=== PATIENT | female | born 1930 | race Caucasian/White ===

== ENCOUNTER 2016-12-03 02:52 | Inpatient (IN) | payer MEDICARE ==
[~2016-12-03] VITALS: Ht 160 cm; Wt 62.2 kg
[2016-12-03] MEDS ORDERED: SODIUM CHLORIDE FLUSH 10 ML SYR IV PRN (03:30)
[2016-12-03] MEDS ORDERED: SODIUM CHLORIDE FLUSH 3 ML SYR IV PRN (03:30)
[2016-12-03 03:44] LABS: BASOPHILS % (AUTO) 0 % (0-2); EOSINOPHILS % (AUTO) 0 % (0-4); LYMPHOCYTES # (AUTO) 0.9 X10^3; MEAN CORPUSCULAR VOLUME 93 FL (80-100); MEAN PLATELET VOLUME 9.5 FL (6.0-9.5); MONOCYTES # (AUTO) 1.6 X10^3; MONOCYTES % (AUTO) 11 % (3-11); NEUTROPHILS # (AUTO) 12.8 X10^3; NEUTROPHILS % (AUTO) 83 % (51-67); PLATELET COUNT 251 10^3uL (150-450); WHITE BLOOD COUNT 15.36 10^3uL (4.0-11.0)
[2016-12-03 03:57] LABS: MEAN CORPUSCULAR HEMOGLOBIN 31.6 PG (26.0-34.0)
[2016-12-03 04:00] LABS: BILIRUBIN,URINE Negative (Negative); CLARITY,URINE Cloudy; COLOR,URINE Yellow; GLUCOSE, URINE (UA) Negative (Negative); LEUKOCYTE ESTERASE ,URINE 3+ (Negative); PH,URINE 6.5 (5.0 - 8.0); UROBILINOGEN,URINE 0.2 mg/dL (0.2-1.0)
[2016-12-03 04:01] LABS: ALBUMIN 4.2 g/dL (3.4-5.0); ANION GAP 15.8 MEQ/L (3-15); CALCULATED IONIZED CALCIUM 4.2 mg/dL (3.8-4.6); TOTAL PROTEIN 7.6 g/dL (6.4-8.5)
[2016-12-03 04:13] LABS: URINE CENTRIFUGED VOLUME 12 mL
[2016-12-03] MEDS ORDERED: cefTRIAXone SODIUM 1,000 MG in SODIUM CHLORIDE 50 ML IV ONE (04:25)
[2016-12-03 05:58] VITALS: BP 110/62
[2016-12-03] MEDS ORDERED: ONDANSETRON 2 MG/ML (Z0FRAN) 2 ML VIAL IV PRN (06:25)
[2016-12-03] MEDS ORDERED: ACETAMINOPHEN 325 MG TAB (TYLENOL) PO PRN (06:25)
[2016-12-03 06:30] VITALS: BP 110/62
[2016-12-03 07:30] VITALS: BP 110/62
[2016-12-03] MEDS: ENOXAPARIN 40 MG/0.4 ML (LOVENOX) SYR SC SCH (09:00)
[2016-12-03 15:37] VITALS: BP 123/59
[2016-12-03] MEDS: ACIDOPHILUS/LACTOBACILLUS SPOROGENES 1 TABLET PO SCH (17:29)
[2016-12-04] VITALS: BP 116/53
[2016-12-04] MEDS ORDERED: cefTRIAXone SODIUM 1,000 MG in SODIUM CHLORIDE 50 ML IV SCH ×2 (05:00→10:26)
[2016-12-04] MEDS ORDERED: SODIUM CHLORIDE 100 ML ONE (05:08)
[2016-12-04] MEDS ORDERED: cefTRIAXone 1 GM (ROCEPHIN) VIAL ONE (05:08)
[2016-12-04] MEDS ORDERED: SODIUM CHLORIDE 50 ML IV ONE (05:08)
[2016-12-04] MEDS ORDERED: NS 100 ML (IVPB) BAG IV PRN (05:10)
[2016-12-04 06:09] LABS: BASOPHILS % (AUTO) 0 % (0-2); EOSINOPHILS # (AUTO) 0.1 10^3uL; EOSINOPHILS % (AUTO) 1 % (0-4); LYMPHOCYTES # (AUTO) 2.1 X10^3; MEAN CORPUSCULAR HGB CONC 33.7 g/dL (31.0-37.0); MEAN CORPUSCULAR VOLUME 94 FL (80-100); MEAN PLATELET VOLUME 10.2 FL (6.0-9.5); MONOCYTES # (AUTO) 1.2 X10^3; MONOCYTES % (AUTO) 8 % (3-11); NEUTROPHILS # (AUTO) 10.9 X10^3; NEUTROPHILS % (AUTO) 76 % (51-67); PLATELET COUNT 222 10^3uL (150-450); WHITE BLOOD COUNT 14.28 10^3uL (4.0-11.0)
[2016-12-04 06:13] LABS: MEAN CORPUSCULAR HEMOGLOBIN 31.6 PG (26.0-34.0)
[2016-12-04 06:35] LABS: ALBUMIN 3.4 g/dL (3.4-5.0); ANION GAP 12.5 MEQ/L (3-15); PHOSPHORUS 2.7 mg/dL (2.4-4.9)
[2016-12-04 07:27] VITALS: BP 103/51
[2016-12-04] MEDS: ACIDOPHILUS/LACTOBACILLUS SPOROGENES 1 TABLET PO SCH (08:04)
[2016-12-04] MEDS: ASPIRIN 81 MG CHEW (CHILDREN'S ASA) PO SCH (08:04)
[2016-12-04] MEDS: ENOXAPARIN 40 MG/0.4 ML (LOVENOX) SYR SC SCH (08:07)
[2016-12-04 15:24] VITALS: BP 117/51
[2016-12-04] MEDS: NYSTATIN ORAL SUSPENSION 5 ML UDC PO SCH (20:32)
[2016-12-05 00:07] VITALS: BP 121/66
[2016-12-05 06:04] LABS: BASOPHILS % (AUTO) 0 % (0-2); EOSINOPHILS # (AUTO) 0.2 10^3uL; EOSINOPHILS % (AUTO) 2 % (0-4); MEAN CORPUSCULAR HGB CONC 33.6 g/dL (31.0-37.0); MEAN CORPUSCULAR VOLUME 94 FL (80-100); MEAN PLATELET VOLUME 9.9 FL (6.0-9.5); MONOCYTES % (AUTO) 11 % (3-11); NEUTROPHILS # (AUTO) 6.5 X10^3; NEUTROPHILS % (AUTO) 66 % (51-67); PLATELET COUNT 216 10^3uL (150-450); WHITE BLOOD COUNT 9.72 10^3uL (4.0-11.0)
[2016-12-05 06:08] LABS: MEAN CORPUSCULAR HEMOGLOBIN 31.5 PG (26.0-34.0)
[2016-12-05 06:26] LABS: ALBUMIN 3.2 g/dL (3.4-5.0); ANION GAP 11.6 MEQ/L (3-15); PHOSPHORUS 3.1 mg/dL (2.4-4.9)
[2016-12-05 07:59] VITALS: BP 117/54
[2016-12-05] MEDS: ENOXAPARIN 40 MG/0.4 ML (LOVENOX) SYR SC SCH (09:00)
[2016-12-05] MEDS: ACIDOPHILUS/LACTOBACILLUS SPOROGENES 1 TABLET PO SCH (09:02)
[2016-12-05] MEDS: ASPIRIN 81 MG CHEW (CHILDREN'S ASA) PO SCH (09:03)
[2016-12-05] MEDS: NYSTATIN ORAL SUSPENSION 5 ML UDC PO SCH ×2 (09:04→20:08)
[2016-12-05] MEDS ORDERED: cefTRIAXone 1 GM (ROCEPHIN) VIAL IM SCH (15:45)
[2016-12-05 16:00] VITALS: BP 120/60
[2016-12-05] MEDS: CALCIUM CARBONATE CHEWABLE 300 MG (TUMS) TABLET PO PRN (19:45)
[2016-12-06 00:34] VITALS: BP 177/88
[2016-12-06] MEDS ORDERED: cefTRIAXone SODIUM 1,000 MG in SODIUM CHLORIDE 50 ML IV SCH (06:00)
[2016-12-06 08:12] VITALS: BP 124/66
[2016-12-06] MEDS: ENOXAPARIN 40 MG/0.4 ML (LOVENOX) SYR SC SCH (08:58)
[2016-12-06] MEDS: ACIDOPHILUS/LACTOBACILLUS SPOROGENES 1 TABLET PO SCH (09:07)
[2016-12-06] MEDS: ASPIRIN 81 MG CHEW (CHILDREN'S ASA) PO SCH (09:07)
[2016-12-06] MEDS: NYSTATIN ORAL SUSPENSION 5 ML UDC PO SCH ×2 (09:07→20:39)
[2016-12-06] MEDS: cefTRIAXone 1 GM (ROCEPHIN) VIAL IM SCH (09:07)
[2016-12-06] MEDS: LIDOCAINE PF 1% (XYLOCAINE) 2 ML VIAL INJ SCH (09:08)
[2016-12-06] MEDS ORDERED: CALCIUM CARBONATE CHEWABLE 300 MG (TUMS) TABLET PO PRN (10:25)
[2016-12-06 16:31] VITALS: BP 137/67
[2016-12-06] MEDS: CALCIUM CARBONATE CHEWABLE 300 MG (TUMS) TABLET PO PRN (20:49)
[2016-12-07 00:05] VITALS: BP 144/70
[2016-12-07 05:54] LABS: COLOR,URINE Yellow
[2016-12-07 05:55] LABS: BILIRUBIN,URINE Negative (Negative); CLARITY,URINE Cloudy; GLUCOSE, URINE (UA) Negative (Negative); LEUKOCYTE ESTERASE, URINE 1+ (Negative); PH,URINE 6.5 (5.0 - 8.0); RBC,URINE 20-50 /HPF; URINE CENTRIFUGED VOLUME 12 mL; UROBILINOGEN,URINE 0.2 mg/dL (0.2-1.0)
[2016-12-07 08:15] VITALS: BP 122/70
[2016-12-07] MEDS: ENOXAPARIN 40 MG/0.4 ML (LOVENOX) SYR SC SCH (09:00)
[2016-12-07] MEDS: ACIDOPHILUS/LACTOBACILLUS SPOROGENES 1 TABLET PO SCH (09:09)
[2016-12-07] MEDS: LIDOCAINE PF 1% (XYLOCAINE) 2 ML VIAL INJ SCH (09:09)
[2016-12-07] MEDS: NYSTATIN ORAL SUSPENSION 5 ML UDC PO SCH (09:09)
[2016-12-07] MEDS: ASPIRIN 81 MG CHEW (CHILDREN'S ASA) PO SCH (09:09)
[2016-12-07] MEDS: cefTRIAXone 1 GM (ROCEPHIN) VIAL IM SCH (09:09)
[2016-12-07] MEDS: CALCIUM CARBONATE CHEWABLE 300 MG (TUMS) TABLET PO PRN (16:07)
== END 2016-12-07 16:35 | disposition home health service (06) | DRG 872 ==
LOC: ED 03:07 → MED/SURG 04:50 → UNDOADMOB 04:50 → OBSVTOIN 04:50
PROVIDERS: ADMIT Family Medicine; ATTEND Family Medicine
DX: A41.51 Sepsis due to Escherichia coli [E. coli] (principal); N39.0 Urinary tract infection, site not specified; E86.0 Dehydration; R33.9 Retention of urine, unspecified; F03.90 Unspecified dementia, unspecified severity, without behavioral disturbance, psychotic disturbance, mood disturbance, and anxiety; J44.9 Chronic obstructive pulmonary disease, unspecified; M41.9 Scoliosis, unspecified; Z79.82 Long term (current) use of aspirin; Z96.643 Presence of artificial hip joint, bilateral; Z86.718 Personal history of other venous thrombosis and embolism; Z86.19 Personal history of other infectious and parasitic diseases
CPT/HCPCS: 36415; 51701; 71020; 76770; 80053; 80069; 81003; 81015; 83605; 85025; 87040; 87077; 87088; 87150; 87186; 87205; 94760; 96361; 96365; 99284

== ENCOUNTER → 2017-04-01 | Outpatient (CLI) | payer MEDICARE, MEDICAID ==
[~2017-04-01] VITALS: Ht 160 cm; Wt 58.5 kg
[~2017-04-01] MED LIST: ASCO10006 PO; ASPI-586 PO; CALC-250 PO; CEFD300C PO; CRAN250C PO; LACT1CAP66 PO; METH1TAB21 PO; MULT-955 PO; NSTU5 PO; [UNRECOGNIZED DRUG - CODE] PO
[2017-04-01 16:45] VITALS: BP 131/71
[2017-04-01 17:29] LABS: BILIRUBIN,URINE Negative (Negative); COLOR,URINE Yellow; GLUCOSE, URINE (UA) Negative (Negative); LEUKOCYTE ESTERASE ,URINE 3+ (Negative); PH,URINE 5.5 (5.0 - 8.0); UROBILINOGEN,URINE 0.2 mg/dL (0.2-1.0)
[2017-04-01 17:30] LABS: CLARITY,URINE Slightly Cloudy
[2017-04-01 17:36] LABS: RBC,URINE 0-2 /HPF; URINE CENTRIFUGED VOLUME <10mL Unspun
== END ==
LOC: EUOP 16:29
PROVIDERS: ATTEND Physician Assistant
DX: N39.0 Urinary tract infection, site not specified (principal)
CPT/HCPCS: 51701; 81003; 81015; 87088

== ENCOUNTER → 2017-04-01 | Outpatient (CLI) | payer MEDICARE, MEDICAID ==
[2017-04-01 16:41] VITALS: BP 116/63
--- NOTE | 2017-04-01 16:41 | Urgent Care T Sheet Gen (E) ---
Intake General Temperature (Fahrenheit): 99.3 Pulse: 78 Blood Pressure Systolic: 116 Blood Pressure Diastolic: 63 Respirations: 20 SPO2: 97 Description of Symptoms patient presents with family member requesting straight cath to obtain UA and culture. i was called by her urologist earlier today, Dr Milton with [facility]. Dr Milton's office requested a UA and culture obtained by straight cath. Family member states Aruna has had recurrent UTI's and over the past few days, she has become febrile and cranky. Wants to r/o infection. Dr Milton's office called and asked if we could perform test, which I agreed to. History of Present Illness Allergies: Coded Allergies: Quinolones (Verified Allergy, Unknown, 12/03/16) Sulfa (Sulfonamide Antibiotics) (Verified Allergy, Unknown, 12/03/16) codeine (Verified Allergy, Unknown, 12/03/16) erythromycin base (Verified Allergy, Unknown, 12/03/16) tetracycline (Verified Allergy, Unknown, 12/03/16) Home Meds Active Scripts Cefdinir 300 Mg [id number] Mg PO BID Infection #18 CAP Ref 0 Prov:UVALDO HASKINS MD 12/07/16 Nystatin (Mycostatin 100,000 units/ml)100,000 Unit/1 Ml Oral.susp5 Ml PO BID # 60 ML Ref 0 Prov:UVALDO HASKINS MD 12/07/16 Reported Medications Lactobacillus Combination No.4 (Probiotic)1 Each Capsule1 Cap PO DAILY 12/04/16 Cranberry Extract (Cranberry)250 Mg [id number] Mg PO DAILY 12/04/16 Calcium Carbonate/Mag Oxide (Oyster Shell Calcium-Magnes Tb)1 Each Tablet1 Tab PO DAILY 12/04/16 Multivitamin (Multi-Vitamin Daily)1 Each Tablet1 Tab PO BID 12/04/16 Ascorbic Acid (Vitamin C)1,000 Mg Tablet1,000 Mg PO BID 12/04/16 Cholecalciferol (Vitamin D3) (Vitamin D3)5,000 Unit Tablet5,000 Unit PO BID 12/04/16 Aspirin (Aspir 81)81 Mg Tablet.dr81 Mg PO DAILY 12/03/16 Methenamine Hippurate 1 Gm Tablet1 Gm PO BID 12/03/16 Respiratory Constitutional Symptoms: Fever Malaise Genitourinary: No symptoms reported All Other Systems Reviewed Remaining Systems: All other systems reviewed with negative findings Past Hshrupz-Nnxaco-Wtdnkj Hx Patient's Social History Alcohol Use: Denies Use Smoking Status: Former smoker Infectious Disease Exposure: No Recent foreign travel: No Surgeries/Hospitalizations Hospitalization/Surgery Hx: LUMPECTOMY HARSH BREAST, GALLBLADDER, APPENDECTOMY, HARSH HIP REPLACEMENTS, HX C DIFF, CHRONIC UTI, SCOLIOSIS Respiratory Respiratory History: COPD Cardiovascular Cardiovascular History: Congestive Heart Failure, Deep Vein Thrombosis Comment: 07/03 DVT LEG Neuro/Muscular Neuro/Muscular History: Memory Loss Comment: PERTHES DISEASE SCOLIOSIS Reproductive System Sexually Transmitted Diseases: No Genitouinary Genitourinary History: Bladder Infection Gastrointestinal GI/Endocrine History: Other, see comment Comment: HX C DIFF W ANITBIOTIC USE Diabetes Diabetes: No HEENT Impaired Vision: None Hearing Impaired: Hard of Hearing Integumentary Integumentary History: None Cancer History of Cancer?: Yes Cancer type: Breast Psychosocial Behavior Disorders: None Physical Exam Physical Exam General Appearance: WD/WN Comment Patient is an 87 year old female who doesn't ambulate very well. Uses a rolling walker and is an assist of 2 to get onto our exam tables. Patient states she has arthritic hips and knees which don't move very well. Getting her to lay down comfortably was a struggle. With our generic straight cath kit , I was unable to obtain a urine sample. Patient didn't tolerate the position which she was required to be in and after several failed attempts, I told her it would be easier to have this done at the ER where they have more appropriate equipment and setup. Patient agreed. Departure Urgent Care Impression Impression: Primary Impression: History of recurrent UTI (urinary tract infection) Departure Departed Disposition: To [facility] ED Condition: Stable Additional Instructions: I [facility] the [facility] to have her straight cath performed. I faxed Dr Milton's original order including UA with culture. Patient is arriving via private vehicle. F/U with Dr Milton. End of report . ELENO ARGUELLO April 01, 2017 16:41
== END ==
LOC: MHUC 15:45
PROVIDERS: ATTEND Physician Assistant
DX: Z87.440 Personal history of urinary (tract) infections (principal)